=== PATIENT | male | born 1975 | race Caucasian/White ===

== ENCOUNTER 2018-04-22 10:50 | Day surgery (SDC) | payer OTHER ==
[~2018-04-22 10:50] MED LIST: ACETAMINOPHEN 1,000 MG/100 ML BTL IV ONE; CEFAZOLIN 2 Gram 2 GM/50 ML BAG IVPB ONE; MORPHINE SULFATE 4 MG/ML VIAL ONE
[2018-04-22] MEDS ORDERED: FENTANYL PF 100MCG/2ML VIAL IV ONE (10:51)
[2018-04-22] MEDS ORDERED: MIDAZOLAM HCL 2MG/2ML VIAL IV ONE (10:51)
[2018-04-22] MEDS ORDERED: DEXAMETHASONE 4 MG/ML 1ML VIAL IVP ONE (10:51)
[2018-04-22] MEDS ORDERED: ONDANSETRON HCL IV 4 MG/2 ML VIAL IVP ONE (10:51)
[2018-04-22] MEDS ORDERED: PROPOFOL 10 MG/ML VIAL IV ONE (10:51)
[2018-04-22] MEDS ORDERED: SEVOFLURANE 250 ML INH ONE (10:51)
[2018-04-22] MEDS ORDERED: BUPIVACAINE 0.5% W/EPI MPF 30 ML VIAL IVP ONE (10:51)
[2018-04-22] MEDS ORDERED: LIDOCAINE 2% MDV (20MG/ML) 20ML VIAL IV ONE (10:51)
[2018-04-22] MEDS ORDERED: METHYLPREDNISOLONE 40MG/VIAL IM ONE (10:51)
--- NOTE | 2018-04-23 09:03 | Operative Note ---
DATE OF SURGERY: 04/22/2018 Surgeon: Donis Breaux MD PREOPERATIVE DIAGNOSIS: Internal derangement left knee. POSTOPERATIVE DIAGNOSIS: Complex tear involving the posterior medial horn of the medial meniscus. OPERATION: Left knee arthroscopy with partial medial meniscectomy. Anesthesia: General. PREPARATION: Chloraprep. INDIVIDUAL CONSIDERATIONS: None. PROCEDURE: The patient was taken to the operating room and placed supine on the operating room table. He had a successful induction of a general anesthetic. His left lower extremity was prepped and draped in the usual fashion. The patient had a superior lateral inflow cannula placed. The skin was infiltrated with 0.5% Marcaine with epinephrine prior. Clear effusion was drained. The knee was then inflated with normal saline. An inferior medial and an inferior lateral portal were made in a similar fashion. The arthroscope was introduced through the inferior lateral portal up into the pouch. The patellofemoral joint was normal. No loose bodies were seen in the pouch or either gutter. Medially, he had an obvious complex flap tear involving the posterior medial horn of the medial meniscus. This was debrided back to a stable rim with basket forceps and a shaver. The articular cartilage was normal. In the notch, the cruciates were normal, the lateral compartment structures were normal. The knee was then irrigated out with saline to remove loose floating debris. The portals were closed with drew. 20 mL of 0.25% plain Marcaine along with 4 mg of morphine and 40 mg of Depo-Medrol were injected into the knee and a sterile bulky compressive dressing was applied. The patient tolerated the procedure well. The needle and sponge counts were correct. Estimated blood loss was minimal. He was taken back to recovery in good condition. There were no complications. [facility]ITAL[facility]
== END 2018-04-22 13:55 | disposition home or self-care (01) ==
LOC: SUR 10:50
PROVIDERS: ATTEND Orthopaedic Surgery
DX: S83.232A Complex tear of medial meniscus, current injury, left knee, initial encounter (principal)
CPT/HCPCS: 29881; 01400; J2405; J3010; J0690; J2270; J1030